=== PATIENT | female | born 1945 | race Caucasian/White ===

== ENCOUNTER 2016-04-06 18:06 | Inpatient (IN) | payer MEDICARE ==
[~2016-04-06] VITALS: Ht 157.5 cm; Wt 110.4 kg
--- NOTE | ~2016-04-06 | ECH ---
Transthoracic Echocardiography Report (TTE) Demographics Patient Name DEVORA FAN Date of Study 04/07/2016 Patient Number [id number] Visit Number [id number] Date of 1945 Room Number 422 Accession Number [id number] Gender Female Age 70 year(s) Referring Judd Martinez Senior Mechanical Engineer Kimberly Carl [facility] Physician Colten Chen MD Physician Interpreting Aracelis Blake MD Environmental Intern Physician Supervising Ordering Physician Judd Martinez MD, MD/P Nurse Stress Job Cost Estimator Conclusions Contractility Score Summary Normal Left Ventricular contractility was noted. Summary Technically adequate exam. The estimated left ventricular ejection fraction is 55-60%. The left ventricle is mildly dilated . Mild concentric left ventricular hypertrophy. The left atrium is severely dilated by LA volume index measurement. The right atrium is moderately dilated There is trivial aortic regurgitation by color Doppler. Mild tricuspid regurgitation by color Doppler. There is mild pulmonary hypertension. The pulmonary pressure (RVSP) is 40 mmHg. The ascending aorta appears mildly dilated. The maximum diameter measures 3.6 cm. Procedure Type of Study TTE procedure:Echo Complete SF. Procedure Date Date: 04/07/2016 Start: 10:07 AM Technical Quality: Adequate visualization Indications:Atrial fibrillation, Congestive heart failure, Diabetes and Hypertension. Appropriate Use Criteria: 9 Height: 62 inches Weight: 242 pounds BSA: 2.07 m Rhythm: Atrial fibrillation HR: 100 bpm BP: 112/59 mmHg M-Mode/2D Measurements LV Diastolic Dimension: 5.52 cm LV Systolic Dimension: 5.4 cm LV Septum Diastolic: 1.08 cm LV PW Diastolic: 1.11 cm AO Root Dimension: 3.39 cm Cardiac Output: 6.27 l/min LA Dimension: 4.53 cm Cardiac Index: 3.03 l/min*m RV Diastolic Dimension: 4.11 cm LA volume index: 66 ml/m LVOT: 2.04 cm LVOT VTI: 19.19 cm RV Base: 3.9 cm LV Stroke volume: 62.69 ml RV Mid: 2.5 cm LV Stroke volume index: 30.29 ml/m TAPSE: 1.8 cm TDI-S': 13 cm/s Doppler Measurements AV Peak Velocity: 1.5 m/s MV Peak E-Wave: 1.13 m/s AV Peak Gradient: 9 mmHg AV Mean Gradient: 4.97 mmHg LVOT Peak Velocity: 1.12 m/s AV Area (Continuity):2.53 cm AV P1/2t: 425.3 msec PV Peak Velocity: 1.14 m/s TR Velocity:2.95 m/s PV Peak Gradient: 5.2 mmHg TR Gradient:34.81 mmHg Estimated PASP: 39.81 mmHg Estimated RAP:5 mmHg Estimated RVSP: 40 mmHg E' Septal Velocity: 0.09 m/s E' Lateral Velocity: 0.12 m/s RA Area: 25.56 cm Findings Left Ventricle The left ventricle is mildly dilated . Mild concentric left ventricular hypertrophy. Diastolic function indeterminate due to patient's arrhythmia. Right Ventricle Normal right ventricle structure and function. Left Atrium The left atrium is severely dilated by LA volume index measurement. Right Atrium The right atrium is moderately dilated. Mitral Valve Mild mitral annular calcification. Mild mitral regurgitation by color Doppler. Aortic Valve The aortic valve is mildly sclerotic. There is trivial aortic regurgitation by color Doppler. Tricuspid Valve Normal tricuspid valve structure and function. Mild tricuspid regurgitation by color Doppler. There is mild pulmonary hypertension. The pulmonary pressure (RVSP) is 40 mmHg. Pulmonic Valve The pulmonic valve is not well visualized. Pericardial Effusion No evidence of pericardial effusion. Miscellaneous The ascending aorta appears mildly dilated. The maximum diameter measures 3.6 cm. Pleural Effusion No evidence of pleural effusion. Contractility Score LV regional wall motion:(0-Non visualized 1-Normal 2-Hypokinesis 3-Akinesis 4-Dyskinesis 5-Aneurysm) Signature
--- NOTE | 2016-04-07 07:54 | HP ---
ADMIT: 04/06/2016 RM/LOC: 422 [facility] MR#: [id number] [id number] [address] DEVORA FAN 912 02[address] [place] [address] History and Physical SEX: F AGE: 70 : 1945 DATE OF SERVICE: REASON FOR ADMISSION: Evidence of congestive heart failure, concerns about pneumonia, atrial fib with rapid ventricular rate. HISTORY OF PRESENT ILLNESS: Tracy is a well-known patient of [facility], who [facility], has been dealing with Cardiology over the last several weeks concerning atrial fib with rapid rate. She had a ZIO patch along, which was taken off today. She presents to our office with increasing shortness of breath, cough with sputum production that is yellowish- green in color as well as peripheral edema. Her SaO2 at rest was 91%; her heart rate was 142 beats per minute, irregular. She had a chest x-ray performed, which showed significant cardiomegaly with changes consistent with either a pleural effusion on the right side or early pneumonia. She also has developed lower extremity edema. She at this time is going to be admitted to the hospital with questionable early pneumonia, atrial fib with rapid, concerns about congestive heart failure, and for rate control. PAST MEDICAL HISTORY: She does have past medical history of morbid obesity and lost greater than 100 pounds dating back to 2007 and with this, she had a large pannus which was surgically removed. She has a history of chronic back pain; back discomfort; history of atrial fibrillation, on chronic anticoagulation with Coumadin; history of hyperlipidemia; history of COPD; history of diabetes as well as a history of peripheral neuropathy. She has a history of microscopic hematuria. MEDICATIONS: Her current meds are as followed, she is on an: 1. Albuterol inhaler. 2. Aspirin 81 mg daily. 3. Cardizem CD 120 mg b.i.d. 4. Ferrous sulfate 325 mg daily. 5. Hydrocodone 5 mg one or two tablets every 4 to 6 hours p.r.n. pain. 6. Isordil ER 30 mg daily. 7. Levothyroxine 25 mcg daily. 8. Loratadine 10 mg daily. 9. Metformin 500 mg one tablet p.o. daily. 10.Multivitamin. 11.Neurontin 300 mg one tablet b.i.d. 12.Nitroglycerin p.r.n. 13.Zoloft 50 mg daily. 14.Simvastatin 40 mg daily. 15.Symbicort 160-4.5, one puff b.i.d. 16.Vitamin B12 injections. 17.Vitamin D. 18.Coumadin 5 mg one tablet daily alternating with 1 and 1/2 tablet every other day. ALLERGIES: SHE IS ALLERGIC TO CANTALOUPE, CODEINE, DARVOCET, PENICILLIN, AND ADHESIVE. ADMIT: 04/06/2016 RM/LOC: 422 [facility] MR#: [id number] [id number] [id number] [place] [address] 02[address]23 [place] [address] History and Physical SEX: F AGE: 70 : 1945 SOCIAL HISTORY: She lives with her sister. No tobacco at this time. FAMILY HISTORY: Noncontributory. REVIEW OF SYSTEMS: She has been cared for by Cardiology over the last several weeks. They have been working on rate control measures, possible DC cardioversion. She just underwent a long-term desk monitor to make those decisions. Evidence of atrial fibrillation with rapid ventricular rate. Development over the last 48 hours of cough, sputum production consistent with questionable early pneumonia. Known history of chronic atrial fibrillation, diabetes, hypertension, hyperlipidemia, and morbid obesity. At this time, we will admit to [facility] for rate control, IV Lasix, IV antibiotics as well as careful monitoring. We will do appropriate laboratory assessment as well as we will ask Cardiology to see and assist in her care. Tomasa Whaley MD/ lindsey JOB #: [id number] CC: Tomasa Whaley, Attending Physician Tomasa Whaley, Family Physician
[2016-04-15] MEDS ORDERED: CARDIZEM CD DP120 MG PO (11:13)
[2016-04-15] MEDS ORDERED: SYMBICORT160 MCG/6 IH (11:13)
[2016-04-15] MEDS ORDERED: SYNTHROID25 MCG PO (11:14)
[2016-04-15] MEDS ORDERED: ZOLOFT DPS50 MG PO (11:14)
[2016-04-15] MEDS ORDERED: ZOCOR80 MG PO (11:14)
[2016-04-15] MEDS ORDERED: PROAIR RESPICL90 MCG IH (11:14)
[2016-04-15] MEDS ORDERED: ASPIRIN EC81 MG PO (11:15)
[2016-04-15] MEDS ORDERED: GLUCOPHAGE-DPS500 MG PO (11:15)
[2016-04-15] MEDS ORDERED: CLARITIN10 M2 PO (11:15)
[2016-04-15] MEDS ORDERED: COUMADIN5 MG PO (11:16)
[2016-04-15] MEDS ORDERED: IMDUR DPS30 MG PO (11:16)
[2016-04-15] MEDS ORDERED: NEURONTIN DPS300 MG PO (11:16)
[2016-04-15] MEDS ORDERED: NORCO 5-325 TA1 EACH PO (11:17)
[2016-04-15] MEDS ORDERED: FEOSOL-DPS325 MG PO (11:17)
[2016-04-15] MEDS ORDERED: DAILY MULTIPLE1 EAC1 PO (11:17)
[2016-04-15] MEDS ORDERED: VITAMIN B-650 MG PO (11:18)
[2016-04-15] MEDS ORDERED: VITAMIN D31000 UNIT PO (11:18)
[2016-04-15] MEDS ORDERED: FOLIC ACID-VIT1 EAC1 PO (11:18)
[2016-04-15] MEDS ORDERED: DELTASONE DPS10 MG PO (11:19)
[2016-04-15] MEDS ORDERED: MUCINEX600 MG PO (11:19)
[2016-04-15] MEDS ORDERED: LANOXIN DPS0.25 MG PO (11:19)
[2016-04-15] MEDS ORDERED: MICRO-K DPS10 MEQ PO (11:20)
[2016-04-15] MEDS ORDERED: LASIX DPS40 MG PO (11:20)
[2016-04-15] MEDS ORDERED: LEVAQUIN DPS500 MG PO (11:20)
--- NOTE | 2016-04-16 15:02 | CO ---
ADMIT: 04/06/2016 RM/LOC: 422 [facility] MR#: [id number] [id number] [address] TAMELA FAN 912 02[address] [place] [address] Consultation SEX: F AGE: 70 : 1945 DATE OF CONSULTATION: 04/07/2016 ATTENDING PHYSICIAN: Tomasa Whaley CONSULTING PHYSICIAN: Navdeep Abel MD REASON FOR CONSULT: Atrial fibrillation with rapid ventricular rate. HISTORY OF PRESENT ILLNESS: Tamela is a pleasant 70-year-old female who presented to her care provider with increasing shortness of breath, cough with sputum production that is yellowish to green in color as well as peripheral edema. She has been seen by Cardiology over the last several weeks concerning her atrial fibrillation with rapid rate. She had chest x-ray done, which showed significant cardiomegaly with changes consistent with either a pleural effusion on the right side or early pneumonia. She was admitted to the hospital with questionable early pneumonia, atrial fib with rapid ventricular rate, concerns about congestive heart failure, and for rate control. She was seen by Dr. Abel in clinic on March 30. She is on Cardizem and Coumadin for treatment for her atrial fibrillation. PAST MEDICAL HISTORY: morbid obesity,history of atrial fibrillation, hyperlipidemia, COPD, diabetes. ALLERGIES: PENICILLIN, CODEINE. MEDICATIONS: 1. Albuterol inhaler. 2. Aspirin 81 mg daily. 3. Cardizem 120 mg b.i.d. 4. Ferrous sulfate 325 mg daily. 5. Hydrocodone 5 mg one or two tablets every 4-6 hours p.r.n. pain. 6. Isordil ER 30 mg daily. 7. Levothyroxine 25 mcg daily. 8. Loratadine 10 mg daily. 9. Metformin 500 mg one tablet p.o. daily. 10.Multivitamin. 11.Neurontin 300 mg one tablet b.i.d. 12.Nitroglycerin p.r.n. 13.Zoloft 50 mg daily. 14.Simvastatin 40 mg daily. 15.Symbicort 160/4.5, one puff b.i.d. 16.Vitamin B12 injection. 17.Vitamin D. 18.Coumadin 5 mg one tablet daily alternating with one and half tablets every other day. SOCIAL HISTORY: The patient denies alcohol and illegal drug use. She is a former tobacco user, she quit 30 years ago. ADMIT: 04/06/2016 RM/LOC: 422 [facility] MR#: [id number] [facility] [address] [place] [address] Consultation SEX: F AGE: 70 : 1945 FAMILY HISTORY: Positive for heart disease, diabetes, cancer, stroke. REVIEW OF SYSTEMS: GENERAL: Coarse cough. Denies fatigue, fever, chills, sweats, rash, or weight loss. EYES: Denies double vision, blurred vision, cataracts, or glaucoma. ENT: Denies hearing loss or problems with nose, mouth or throat. PULMONARY: Cough with sputum production, asthma. Denies emphysema or bronchitis. Denies snoring loudly, wakefulness at night, or fatigue upon awakening. GASTROINTESTINAL: Denies heartburn or difficulty swallowing. No change in bowel habits. Denies dark or bloody stools. No history of ulcers, hiatal hernia, or gallbladder or liver disease. GENITOURINARY: Denies dysuria, hematuria, nocturia, urinary tract infection, or kidney stones. Denies history of renal insufficiency or failure. MUSCULOSKELETAL: Denies history of arthritis or gout. Denies muscle or joint pains. ENDOCRINE: Positive for diabetes. Denies history of thyroid dysfunction. HEMATOLOGIC: Positive for anemia. Denies history of easy bruising or cancer. NEUROLOGIC: Denies chronic headaches, dizziness, syncope, stroke, seizures or numbness or tingling. PSYCHIATRIC: Denies history of mental illness or feelings of depression. PHYSICAL EXAMINATION: GENERAL: Coarse cough. VITAL SIGNS: Blood pressure 112/59, pulse 99, respirations 20, temperature 97.6, oxygenation 96% on O2. SKIN: [place], warm and dry. EYES: Sclerae clear. No xanthelasmas. ENT: Oral mucosa is pink and moist. No jugular venous distention or carotid bruits. CHEST: Diffuse wheezing. HEART: Irregularly irregular. ABDOMEN: Soft and nontender. Obese. MUSCULOSKELETAL: Gait is normal. EXTREMITIES: Mild edema. Peripheral pulses palpable. No clubbing or cyanosis. PSYCHIATRIC: Alert and oriented. Mood and affect are appropriate. LABORATORY AND X-RAY DATA: Sodium 142, potassium 4.1, chloride 104, bicarb 30, BUN 20, creatinine 1.1, glucose 104. Chest x-ray findings, cardiomegaly with bronchial wall thickening, small pleural effusion, bilateral lung base opacities, CHF versus pneumonia. ADMIT: 04/06/2016 RM/LOC: 422 [facility] MR#: [id number] [address] [place] [id number] [place] [address] 02[address]23 [place] [address] Consultation SEX: F AGE: 70 : 1945 ASSESSMENT AND PLAN: Per Dr. Abel: 1. Atrial fibrillation with rapid ventricular rate. 2. Bronchitis. 3. Diabetes. 4. Asthma. It is okay for patient to receive some IV Lasix, but I do not think this is CHF-related. Acute respiratory illness is driving cough and rapid heart rate. We will continue to rate control for right now. We will give the patient digoxin 0.25 mg IV x1 for now and we will repeat an EKG in the morning. Thank you for the consult. RADHA Young Student / Navdeep Abel MD / lindsey JOB #: [id number] CC: Tomasa Whaley, Attending Physician Tomasa Whaley, Family Physician
--- NOTE | 2016-04-27 07:27 | DS ---
ADMIT: 04/06/2016 RM/LOC: 422 [facility] MR#: [id number] [id number] [address] DEVORA FAN 912 02[address] [place] [address] Discharge Summary SEX: F AGE: 70 : 1945 ADMISSION DATE: 04/06/2016 DISCHARGE DATE: 04/14/2016 DISCHARGE DIAGNOSES: 1. Evidence of morbid obesity. 2. History of atrial fibrillation with development of rapid heart rate. 3. Diabetes. 4. Evidence of viral pneumonia. 5. Hypoxia. 6. Hypertension. 7. Morbid obesity. HISTORY OF PRESENT ILLNESS: Well documented in her H and P. LABORATORY AND RADIOGRAPHIC ASSESSMENT: On admission, her hemoglobin was 9.8. Her discharge white count was 11,000, hemoglobin 11.6, platelet count 268,000. Stool examinations for blood were negative. BUN and creatinine were 20 and 1.1. Blood sugar 104. Magnesium low 1.4. Iron level of 26. Her discharge sodium is 142, potassium 5.2, BUN and creatinine 48 and 1.0. Blood sugar 182. B12 of 864. Folic acid 13.6. Her sputum culture showed Tamica albicans, normal medina, sparse. CTA of chest showed somewhat limited evaluation for pulmonary embolism, distal bronchus, small nonspecific mediastinal lymph nodes, no evidence of pulmonary embolism, small right pleural effusion, atelectasis. Chest x-ray at the time of discharge showed cardiomegaly with interstitial edema, improved since previous exam, left lower lobe atelectasis, emphysema. Her echocardiogram showed ejection fraction of 50% to 60%, left ventricular is mildly dilated, mild concentric left ventricular hypertrophy, left atrium is severely dilated by LV volume, right atrium is moderately dilated. There is trivial aortic regurg, moderate tricuspid regurg, there is mild pulmonary hypertension, ascending aorta appears mildly dilated. EKG showed atrial fibrillation with rapid rate. HOSPITAL COURSE: She was admitted to [facility] from the office with hypoxia as well as atrial fibrillation with rapid rate. She has a known history of atrial fibrillation, was admitted with concerns about early viral pneumonia versus heart failure versus as a rate control. She was hypoxic in the office. She was admitted to telemetry, vital signs routine, resumed her home meds, aggressive DuoNeb therapy, started on Zosyn, given one dose of Lasix for rate control, was started on Cardizem. Did ask Cardiology to see and assist in her care. She did have a set of cardiac enzymes performed, which was negative. She had slow but sure progress. She was given periodic doses of Lasix. Viral cultures were performed, which showed no evidence of influenza. Her rate was successfully controlled with addition of digoxin. Her IV Cardizem was switched back to oral Cardizem on 04/08/2016. She was started on physical therapy. Her blood sugars were monitored closely. She had evidence of persistent atrial fibrillation with rate control, obesity, bronchitis, asthma, viral pneumonia. She had slow, but sure improvement and was subsequently discharged home on: 1. Aspirin. ADMIT: 04/06/2016 RM/LOC: 422 [facility] MR#: [id number] [place] [id number] [place], [place] [address]DEVORA [facility] 02/23 [place] [address] Discharge Summary SEX: F AGE: 70 : 1945 2. Claritin. 3. Coumadin 5 mg daily. 4. Iron. 5. Folic acid. 6. Glucophage 500 mg b.i.d. 7. Imdur 30 mg daily. 8. Lanoxin 0.25 mg daily. 9. Mucinex. 10.Neurontin. 11.Synthroid. 12.Therapeutic vitamin. 13.Tiazac. 14.Vitamin B12. 15.Vitamin B6. 16.Vitamin D. 17.Zocor 40 mg daily. 18.Zoloft 50 mg daily. 19.Dulera 100/5, 8.6 g inhaler one puff b.i.d. 20.Levemir 20 units daily. She was continued on: 1. Doxycycline 100 mg b.i.d. for seven days. 2. Prednisone 20 mg b.i.d. for four days, then daily for 10, and then discontinued. 3. Lasix 40 daily. 4. K-Dur 10 mEq daily. I will have followup with her in 7 to 10 days as well as she will continue her followup with Cardiology for continued rate control. She was discharged in stable condition. Tomasa Whaley MD/ lindsey JOB #: [id number] CC: Tomasa Whlaey MD, Attending Physician Tomasa Whaley MD, Family Physician
[2016-05-19] MEDS ORDERED: TESSALON PERLE100 M1 PO (06:17)
[2016-05-19] MEDS ORDERED: PEPCID DPS20 MG PO (06:17)
[2016-05-19] MEDS ORDERED: DUONEB DPS3 ML IH (06:17)
[2016-05-19] MEDS ORDERED: FLONASE 0.05% D16 GM NS (06:17)
[2016-05-19] MEDS ORDERED: TYLENOL DPS325 MG PO (06:18)
[2016-05-19] MEDS ORDERED: MAALOX DPS30 ML PO (06:18)
[2016-05-19] MEDS ORDERED: SURFAK DPS240 MG PO (06:18)
== END 2016-04-14 14:30 | disposition home or self-care (01) | DRG 308 ==
LOC: 4PCU 18:06
PROVIDERS: ADMIT Internal Medicine
DX: I48.1 Persistent atrial fibrillation (principal); I50.33 Acute on chronic diastolic (congestive) heart failure; J12.9 Viral pneumonia, unspecified; E11.40 Type 2 diabetes mellitus with diabetic neuropathy, unspecified; J44.0 Chronic obstructive pulmonary disease with (acute) lower respiratory infection; J44.1 Chronic obstructive pulmonary disease with (acute) exacerbation; Z68.41 Body mass index [BMI] 40.0-44.9, adult; I11.0 Hypertensive heart disease with heart failure; E66.01 Morbid (severe) obesity due to excess calories; R09.02 Hypoxemia; D64.9 Anemia, unspecified; M54.9 Dorsalgia, unspecified; J45.909 Unspecified asthma, uncomplicated; Z79.01 Long term (current) use of anticoagulants; E78.5 Hyperlipidemia, unspecified; Z79.82 Long term (current) use of aspirin; Z79.84 Long term (current) use of oral hypoglycemic drugs; Z87.891 Personal history of nicotine dependence

== ENCOUNTER 2016-05-11 13:13 | Inpatient (IN) | payer MEDICARE ==
[~2016-05-11] VITALS: Ht 157.5 cm; Wt 108.7 kg
[~2016-05-11 13:13] MED LIST: ASPIRIN EC81 MG PO; CARDIZEM CD DP120 MG PO; CLARITIN10 M2 PO; COUMADIN5 MG PO; DAILY MULTIPLE1 EAC1 PO; DELTASONE DPS10 MG PO; FEOSOL-DPS325 MG PO; FOLIC ACID-VIT1 EAC1 PO; GLUCOPHAGE-DPS500 MG PO; IMDUR DPS30 MG PO; LANOXIN DPS0.25 MG PO; LASIX DPS40 MG PO; LEVAQUIN DPS500 MG PO; MICRO-K DPS10 MEQ PO; MUCINEX600 MG PO; NEURONTIN DPS300 MG PO; NORCO 5-325 TA1 EACH PO; PROAIR RESPICL90 MCG IH; SYMBICORT160 MCG/6 IH; SYNTHROID25 MCG PO; VITAMIN B-650 MG PO; VITAMIN D31000 UNIT PO; ZOCOR80 MG PO; ZOLOFT DPS50 MG PO
--- NOTE | 2016-05-16 08:22 | ER ---
ADMIT: 05/11/2016 RM/LOC: 426 [facility] MR#: [id number] [address] DEVORA FAN 912 02[address] [place] [address] Emergency Room Report SEX: F AGE: 71 : 1945 DATE: 05/11/2016 HISTORY OF PRESENT ILLNESS: A 71-year-old female comes to the Emergency Department with a 3 to 4 days of vomiting, diarrhea, and crampy abdominal pain. She recently has been hospitalized with pneumonia. Subsequently discharged, developed these symptoms. She had been seen recently by Dr. Whaley and started on doxycycline for upper respiratory tract infection. However, the vomiting and diarrhea persisted and she subsequently came to the Emergency Department. REVIEW OF SYSTEMS: As mentioned above for recent bout with pneumonia. She does have a productive cough and claims to have dark urine. PAST MEDICAL HISTORY: AFib, diabetes, and COPD. SOCIAL HISTORY: No smoking. No drinking. PHYSICAL EXAMINATION: GENERAL: Reveals an obese 71-year-old female, anxious, but in no acute distress. LUNGS: Clear to auscultation bilaterally. CARDIOVASCULAR: Irregular rate and irregular rhythm and tachycardic. ABDOMEN: Mild tenderness in the lower quadrants. No guarding and no rebound. EXTREMITIES: Unremarkable. AIRPORT ENGINEER: No focal findings. EMERGENCY ROOM COURSE: CBC was within normal limits. Electrolytes were normal. UA was unremarkable. A BNP was 4558. Monitor revealed atrial fibrillation with RVR. She was given metoprolol 5 mg which brought her rate in the 130s down to 100 to upper 90s. The patient is being admitted with exacerbation of CHF and atrial fibrillation with RVR. Luis Felipe Cano MD/ lindsey JOB #: [id number] CC: Tomasa Whaley MD, Attending Physician Tomasa Whaley MD, Family Physician
[2016-05-19] MEDS ORDERED: DUONEB DPS3 ML IH (06:17)
[2016-05-19] MEDS ORDERED: FLONASE 0.05% D16 GM NS (06:17)
[2016-05-19] MEDS ORDERED: PEPCID DPS20 MG PO (06:17)
[2016-05-19] MEDS ORDERED: TESSALON PERLE100 M1 PO (06:17)
[2016-05-19] MEDS ORDERED: MAALOX DPS30 ML PO (06:18)
[2016-05-19] MEDS ORDERED: TYLENOL DPS325 MG PO (06:18)
[2016-05-19] MEDS ORDERED: SURFAK DPS240 MG PO (06:18)
--- NOTE | 2016-05-21 08:22 | HP ---
ADMIT: 05/11/2016 RM/LOC: 426 [facility] MR#: [id number] [address] [place] [phone] [place] [address] [place] [address] History and Physical SEX: F AGE: 71 : 1945 DATE OF SERVICE: Please see her previous admission which was within the last two weeks period as a complete assessment. HISTORY OF PRESENT ILLNESS: This 71-year-old, white female was admitted with recent hospitalization for pneumonia with atrial fibrillation with rapid ventricular rate. She has had a history of chronic atrial fibrillation and obesity. She presents with nausea, vomiting, diarrhea, unable to keep her pills down with tachycardia and abdominal pain. PAST MEDICAL HISTORY: Includes a history as above. Atrial fibrillation, pneumonia, morbid obesity, hypertension, and diabetes. SOCIAL HISTORY: She lives with her sister. FAMILY HISTORY: Noncontributory. REVIEW OF SYSTEMS: She had been doing well status post her hospitalization and then developed nausea, vomiting, and diarrhea. PHYSICAL EXAMINATION: GENERAL: She is alert. HEENT: Normal. HEART: Irregular rhythm consistent with her atrial fibrillation. LUNGS: Clear, but diminished to auscultation. ABDOMEN: Soft and nontender. Obese. EXTREMITIES: No evidence of edema. LABORATORY AND X-RAY DATA: In the emergency room, her sodium was 145, potassium 4.0, blood sugar 157. LFTs were normal. BNP was 4558. INR of 3.07. White count of 4.9, hemoglobin 12.9. UA showed blood 1+. Chest x-ray ADMIT: 05/11/2016 RM/LOC: 426 [facility] MR#: [id number] [place] [phone] DEVORA FAN2 [address] [place] [address] History and Physical SEX: F AGE: 71 : 1945 showed cardiomegaly with bibasilar opacities. She subsequently is admitted with dehydration. ASSESSMENT: Admission of a 71-year-old, white female with recent hospitalization for pneumonia and atrial fibrillation with rapid rate with evidence of dehydration, nausea, vomiting, diarrhea, concerns about viral gastroenteritis or even Clostridium difficile colitis. She will be admitted for IV hydration, stool studies, as well as rate control of her heart rate. Close monitoring of blood sugars. She has had a history of chronic obstructive pulmonary disease with recent pneumonia but does not have any evidence of pneumonia on this initial x-rays. She will be admitted for continued evaluation and care. Tomasa Whaley MD/ lindsey JOB #: [id number] CC: Tomasa Whaley MD, Attending Physician Tomasa Whaley MD, Family Physician
--- NOTE | 2016-05-25 07:35 | DS ---
ADMIT: 05/11/2016 RM/LOC: 426 [facility] MR#: [id number] [id number] [address] DEVORA FAN 912 [address] [place] [address] General Discharge Summary SEX: F AGE: 71 : 1945 ADMISSION DATE: 05/11/2016 DISCHARGE DATE: 05/18/2016 DISCHARGE DIAGNOSES: Dehydration, nausea, vomiting, diarrhea, viral gastroenteritis, recent hospitalization for pneumonia with atrial fibrillation with rapid ventricular rate, history of chronic atrial fibrillation, and obesity. HISTORY OF PRESENT ILLNESS: Well documented in her H and P. Her laboratory and radiographic assessment is as followed. On admission, her white count was 5.3 and hemoglobin 13.2. Urinalysis showed 1+ ketones, 1+ blood, no leukocytes. Sodium of 140, potassium 3.6, BUN and creatinine of 16 and 1.3. Blood sugar is greater than 200. Her urine culture showed multiple organisms. Clostridium difficile was negative. Enteric pathogens were negative. CT of the abdomen showed no acute abdominal or pelvic abnormalities. Chronic diverticulosis without evidence acute diverticulitis. Large amount of pannus. Chest x-ray showed cardiomegaly and bilateral opacities. Ultrasound of the abdomen was normal. Overnight oximetry showed no evidence of significant hypoxia. Tracy was admitted to [facility] after being hospitalized approximately a week and a half prior with atrial fibrillation with rapid ventricular rate. She was found to have evidence of nausea, vomiting, and diarrhea with dehydration. She was admitted to the hospital with weakness and treatment of her nausea, vomiting, and diarrhea. She had stool cultures performed, which showed no evidence of bacteria. She was given IV hydration. Rate control as she was unable to take her oral medications initially on admission. Ultrasound of her abdomen was obtained. She was started on Reglan and IV Pepcid. Given Imodium for her diarrhea. Her INR was elevated during this time, and her Coumadin was held and restarted as appropriate. Evidence of acute bronchitis as she had evidence of yellow sputum with increasing shortness of breath. Chest x-ray did not show any evidence of overt pneumonia. She did have hyperglycemia associated with steroid therapy. We did overnight trend oximetry, which did not show any evidence of hypoxia. Subsequently was discharged on 05/18/2016. Follow up blood sugars. She will follow up with me in 7 days. Follow up with Cardiology as directed earlier from her last admission. At the time of her discharge, her INR was 2.10. Her SaO2 on room air was in the mid 90s. She was discharged in stable condition. Please see her meds per her MAR. Tomasa Whaley MD/ lindsey JOB #: [id number] CC: Tomasa Whaley MD, Attending Physician Tomasa Whaley MD, Family Physician
== END 2016-05-18 12:21 | disposition home or self-care (01) | DRG 392 ==
LOC: ER 13:13 → 4PCU 17:15
PROVIDERS: ADMIT Internal Medicine
DX: A08.4 Viral intestinal infection, unspecified (principal); E86.0 Dehydration; I50.9 Heart failure, unspecified; E11.40 Type 2 diabetes mellitus with diabetic neuropathy, unspecified; I11.0 Hypertensive heart disease with heart failure; I48.2 Chronic atrial fibrillation; E11.65 Type 2 diabetes mellitus with hyperglycemia; J44.0 Chronic obstructive pulmonary disease with (acute) lower respiratory infection; E66.9 Obesity, unspecified; J20.9 Acute bronchitis, unspecified; Z68.39 Body mass index [BMI] 39.0-39.9, adult; D64.9 Anemia, unspecified; I25.10 Atherosclerotic heart disease of native coronary artery without angina pectoris; K57.90 Diverticulosis of intestine, part unspecified, without perforation or abscess without bleeding; G89.4 Chronic pain syndrome; Z79.84 Long term (current) use of oral hypoglycemic drugs

== ENCOUNTER → 2016-07-23 | Outpatient (CLI) | payer OTHER, MEDICARE ==
[~2016-07-23] MED LIST changes: +DUONEB DPS3 ML IH; +FLONASE 0.05% D16 GM NS; +MAALOX DPS30 ML PO; +PEPCID DPS20 MG PO; +SURFAK DPS240 MG PO; +TESSALON PERLE100 M1 PO; +TYLENOL DPS325 MG PO
== END | disposition home or self-care (01) ==
LOC: RAD.S 05-21 10:00
DX: Z12.31 Encounter for screening mammogram for malignant neoplasm of breast (principal)